=== PATIENT | female | born 1925 | race Caucasian/White ===

== ENCOUNTER 2016-09-27 10:21 | Observation (INO) | payer OTHER ==
[~2016-09-27] VITALS: Ht 152.4 cm; Wt 82.3 kg
[2016-09-27 15:17] LABS: HEMOGLOBIN 12.8 gm/dl (12.3-15.3); RED BLOOD COUNT 4.25 M/UL (4.00-5.10); WHITE BLOOD COUNT 8.1 K/UL (4.5-11.0)
[2016-09-27] MEDS ORDERED: IBUPROFEN800 MG PO (22:42)
[2016-09-27] MEDS ORDERED: FLAGYL500 MG PO (22:42)
[2016-09-27] MEDS ORDERED: LIPITOR TAB 2020 MG PO (22:43)
[2016-09-27] MEDS ORDERED: MISOPROSTOL PO (22:43)
[2016-09-27] MEDS ORDERED: K-DUR TAB 10 M10 MEQ PO (22:43)
[2016-09-27] MEDS ORDERED: LISINOPRIL20 MG PO (22:44)
[2016-09-27] MEDS ORDERED: ASPIR 8181 MG PO (22:44)
[2016-09-27] MEDS ORDERED: OMEPRAZOLE20 MG PO (22:45)
[2016-09-27] MEDS ORDERED: TOPROL XL 25 MG25 MG PO (22:46)
[2016-09-27] MEDS ORDERED: LASIX 40 MG TAB40 MG PO (22:48)
[2016-09-29 07:30] LABS: HEMOGLOBIN 11.9 gm/dl (12.3-15.3); RED BLOOD COUNT 4.04 M/UL (4.00-5.10); WHITE BLOOD COUNT 9.6 K/UL (4.5-11.0)
[2016-09-30] MEDS ORDERED: LISINOPRIL10 MG PO (16:09)
[2016-09-30] MEDS ORDERED: LOTRISONE CREAM15 GM TOP (16:11)
[2016-09-30] MEDS ORDERED: PREDNISONE10 MG PO (16:12)
[2016-09-30] MEDS ORDERED: PROVENTIL HFA 61 INH INH (16:15)
[2016-09-30] MEDS ORDERED: TYLENOL 325MG325 MG PO (16:16)
[2016-09-30] MEDS ORDERED: TOPROL XL25 MG PO (16:17)
[2016-09-30] MEDS ORDERED: IMDUR ER TAB 3030 MG PO (22:46)
== END 2016-09-30 18:31 | disposition home or self-care (01) ==
LOC: ER1 10:21 → ZEROF 18:16 → M/S 18:16
PROVIDERS: Emergency Medicine; ADMIT Internal Medicine Infectious Disease
DX: J45.909 Unspecified asthma, uncomplicated (principal); R19.7 Diarrhea, unspecified; L21.9 Seborrheic dermatitis, unspecified; R53.1 Weakness; I50.30 Unspecified diastolic (congestive) heart failure; I11.0 Hypertensive heart disease with heart failure; R79.89 Other specified abnormal findings of blood chemistry; I25.10 Atherosclerotic heart disease of native coronary artery without angina pectoris; E78.5 Hyperlipidemia, unspecified; K21.9 Gastro-esophageal reflux disease without esophagitis; R73.9 Hyperglycemia, unspecified; R21 Rash and other nonspecific skin eruption; Z79.82 Long term (current) use of aspirin; Z79.899 Other long term (current) drug therapy; Z95.1 Presence of aortocoronary bypass graft; Z90.49 Acquired absence of other specified parts of digestive tract
CPT/HCPCS: ECHO; 36415; 36600; 71010; 78582; 80048; 80053; 82550; 82553; 82803; 83735; 83880; 84484; 85025; 85379; 93005; 93306; 94640; 94664; 96372; 96374; 96376; 99285; A9539; A9540; G0378; J1650; J1940; J2920; J2930